=== PATIENT | female | born 1985 | race Caucasian/White ===

== ENCOUNTER 2017-03-02 14:02 | Emergency (ER) | payer MEDICAID ==
[~2017-03-02] VITALS: Ht 165.1 cm; Wt 104.3 kg
[2017-03-02 14:02] VITALS: BP_SYST 122
[2017-03-02 14:45] LABS: BASOPHILS # (AUTO) 0.1 K/uL (0.0-0.2); EOSINOPHILS # (AUTO) 0.2 K/uL (0.0-0.4); HEMATOCRIT 44.4 % (36-48); LYMPHOCYTES # (AUTO) 1.7 K/uL (1.0-5.5); MEAN CORPUSCULAR HEMOGLOBIN 31 pg (27-31); MEAN CORPUSCULAR HGB CONC 33 % (32-36); MEAN CORPUSCULAR VOLUME 93 fL (79.0-98.0)
[2017-03-02 14:49] LABS: EOSINOPHILS % (AUTO) 1.7 % (0.0-4.0); HEMOGLOBIN 14.7 g/dL (12.0-16.0); LYMPHOCYTES % (AUTO) 15.5 % (20.5-51.5); MONOCYTES # (AUTO) 0.5 K/uL (0.0-1.0); MONOCYTES % (AUTO) 4.7 % (1.7-9.3); NEUTROPHILS # (AUTO) 8.6 K/uL (1.8-7.7); NEUTROPHILS % (AUTO) 77.1 % (40.0-70.0); PLATELET COUNT (AUTO) 281 K/uL (130-430); RED BLOOD CELL COUNT(AUTO) 4.76 MIL/uL (4.2-6.2); RED CELL DISTRIBUTION WIDTH 11.4 % (9.0-15.0); WHITE BLOOD COUNT (AUTO) 11.1 K/uL (4.8-10.8)
[2017-03-02 14:51] LABS: BILIRUBIN,URINE NEGATIVE (NEGATIVE); CLARITY/URINE HAZY (CLEAR); COLOR,URINE YELLOW (YELLOW); GLUCOSE,URINE NEGATIVE (NEGATIVE); KETONES,URINE NEGATIVE (NEGATIVE); LEUKOCYTE ESTERASE ,URINE 1+ (NEGATIVE); NITRITE, URINE NEGATIVE (NEGATIVE); PH,URINE 5.5 (5.0-8.0); PROTEIN URINE TRACE (NEGATIVE); UROBILINOGEN,URINE 0.2 (0.2-1.0)
[2017-03-02 14:56] LABS: BLOOD, URINE TRACE (NEGATIVE)
[2017-03-02 14:56] LABS: CALCIUM 9.2 mg/dL (8.4-11.0); CREATININE 0.68 mg/dL (0.55-1.30); POTASSIUM 4.1 mmol/L (3.5-5.1)
[2017-03-02 14:59] LABS: BACTERIA,URINE FEW /HPF (None Seen)
[2017-03-02 15:04] LABS: ALBUMIN 4.1 g/dL (3.4-4.8); TOTAL BILIRUBIN 0.7 mg/dL (0.0-1.0); TOTAL PROTEIN, SERUM 7.8 g/dL (6.4-8.3)
[2017-03-02] MEDS ORDERED: MAG HYDROX/AL HYDROX/SIMETH 30 ML, LIDOCAINE VISCOUS 2% 15ML (PO) 10 ML, BELLADONNA ALK... PO ONE ×3 (16:00)
[2017-03-02 16:59] LABS: BILIRUBIN,URINE 1+ (NEGATIVE); CLARITY/URINE CLOUDY (CLEAR); COLOR,URINE YELLOW (YELLOW); GLUCOSE,URINE NEGATIVE (NEGATIVE); KETONES,URINE NEGATIVE (NEGATIVE); LEUKOCYTE ESTERASE ,URINE NEGATIVE (NEGATIVE); NITRITE, URINE NEGATIVE (NEGATIVE); PH,URINE 5.5 (5.0-8.0); PROTEIN URINE NEGATIVE (NEGATIVE); UROBILINOGEN,URINE 0.2 (0.2-1.0)
[2017-03-02 17:15] LABS: BLOOD, URINE TRACE (NEGATIVE)
[2017-03-02 17:23] LABS: BACTERIA,URINE MODERATE /HPF (None Seen); MUCUS,URINE 1+ /LPF (None Seen); RBC,URINE 0-3 /HPF (0-3)
[2017-03-02] MEDS ORDERED: cefTRIAXone 1 GM VIAL IM ONE (17:30)
[2017-03-02] MEDS ORDERED: LIDOCAINE 1% 10 MG/ML, 20 ML MDV INJ ONE (17:30)
[2017-03-02 22:58] VITALS: BP_SYST 143
== END 2017-03-02 18:00 | disposition home or self-care (01) ==
LOC: SED 14:02
DX: K81.0 Acute cholecystitis (principal); N39.0 Urinary tract infection, site not specified; Z88.2 Allergy status to sulfonamides
CPT/HCPCS: 36415; 76700; 80053; 81000; 83690; 85025; 87086; 96372; 99285; J0696; J2001 ×2

== ENCOUNTER 2017-03-02 22:06 | Inpatient (IN) | payer MEDICAID ==
[~2017-03-02] VITALS: Ht 165.1 cm; Wt 103.9 kg
[2017-03-02 22:17] VITALS: BP_SYST 135
[2017-03-02] MEDS ORDERED: MORPHINE 2 MG/ML INJ. SYRINGE IVP PRN (22:30)
[2017-03-02 22:55] VITALS: BP_SYST 143
[2017-03-02 23:15] VITALS: BP_SYST 143
[2017-03-02] MEDS: D5NS 1,000 ML IV SCH (23:39)
[2017-03-03] VITALS (7 sets, daily range): BP systolic 113–130
[2017-03-03] MEDS: PIPERACILLIN/TAZO 3.375 GM in NS 50 ML IV SCH ×4 (00:50→17:55)
[2017-03-03 07:46] LABS: BASOPHILS % (AUTO) 0.3 % (0.0-2.0); EOSINOPHILS # (AUTO) 0.1 K/uL (0.0-0.4); EOSINOPHILS % (AUTO) 1.1 % (0.0-4.0); HEMATOCRIT 38.1 % (36-48); HEMOGLOBIN 13.1 g/dL (12.0-16.0); LYMPHOCYTES # (AUTO) 2.1 K/uL (1.0-5.5); LYMPHOCYTES % (AUTO) 20.5 % (20.5-51.5); MEAN CORPUSCULAR HEMOGLOBIN 32 pg (27-31); MEAN CORPUSCULAR HGB CONC 34 % (32-36); MEAN CORPUSCULAR VOLUME 94 fL (79.0-98.0); MONOCYTES # (AUTO) 0.6 K/uL (0.0-1.0); MONOCYTES % (AUTO) 6.3 % (1.7-9.3); NEUTROPHILS # (AUTO) 7.3 K/uL (1.8-7.7); NEUTROPHILS % (AUTO) 71.8 % (40.0-70.0); PLATELET COUNT (AUTO) 223 K/uL (130-430); RED BLOOD CELL COUNT(AUTO) 4.07 MIL/uL (4.2-6.2); RED CELL DISTRIBUTION WIDTH 11.6 % (9.0-15.0); WHITE BLOOD COUNT (AUTO) 10.1 K/uL (4.8-10.8)
[2017-03-03 07:56] LABS: CALCIUM 8.3 mg/dL (8.4-11.0); CREATININE 0.75 mg/dL (0.55-1.30); POTASSIUM 3.5 mmol/L (3.5-5.1)
[2017-03-03 08:00] LABS: ALBUMIN 3.3 g/dL (3.4-4.8); TOTAL BILIRUBIN 0.6 mg/dL (0.0-1.0); TOTAL PROTEIN, SERUM 6.7 g/dL (6.4-8.3)
[2017-03-03] MEDS ORDERED: MORPHINE 2 MG/ML INJ. SYRINGE IVP PRN ×5 (08:45→17:15)
[2017-03-03] MEDS ORDERED: LORazepam 2 MG/ML VIAL IVP PRN (08:45)
[2017-03-03] MEDS ORDERED: ACETAMINOPHEN 325 MG TABLET PO PRN (08:45)
[2017-03-03] MEDS ORDERED: DOCUSATE SODIUM 100 MG CAPSULE PO PRN (08:45)
[2017-03-03] MEDS ORDERED: POTASSIUM CHLORIDE 10 MEQ TAB.PRT.SR PO PRN (08:45)
[2017-03-03] MEDS ORDERED: MAGNESIUM SULFATE 50 ML IV PRN (08:45)
[2017-03-03] MEDS ORDERED: ONDANSETRON HCL 4 MG/2 ML VIAL IVP PRN (08:45)
[2017-03-03] MEDS ORDERED: ZOLPIDEM TARTRATE 5 MG TABLET PO PRN (08:45)
[2017-03-03 10:02] LABS: BILIRUBIN,URINE NEGATIVE (NEGATIVE); CLARITY/URINE CLEAR (CLEAR); COLOR,URINE YELLOW (YELLOW); GLUCOSE,URINE NEGATIVE (NEGATIVE); KETONES,URINE NEGATIVE (NEGATIVE); LEUKOCYTE ESTERASE ,URINE TRACE (NEGATIVE); NITRITE, URINE NEGATIVE (NEGATIVE); PH,URINE 5.5 (5.0-8.0); PROTEIN URINE NEGATIVE (NEGATIVE); UROBILINOGEN,URINE 0.2 (0.2-1.0)
[2017-03-03 10:03] LABS: BLOOD, URINE TRACE (NEGATIVE)
[2017-03-03 10:23] LABS: BACTERIA,URINE FEW /HPF (None Seen); MUCUS,URINE 1+ /LPF (None Seen)
[2017-03-03] MEDS ORDERED: NS 1000 ML BAG IV ONE (10:25)
[2017-03-03] MEDS ORDERED: NS IRRIG SOLN 1000 ML IR ONE (10:25)
[2017-03-03] MEDS ORDERED: SEVOFLURANE 15 MIN GAS INH ONE (10:25)
[2017-03-03] MEDS ORDERED: GLYCOPYRROLATE 0.2 MG/ML VIAL IJ ONE (10:25)
[2017-03-03] MEDS ORDERED: ROCURONIUM BROMIDE 10 MG/ML (ZEMURON) IV ONE (10:25)
[2017-03-03] MEDS ORDERED: ONDANSETRON HCL 4 MG/2 ML VIAL IVP ONE (10:25)
[2017-03-03] MEDS ORDERED: MIDAZOLAM HCL 5 MG/5 ML VIAL IVP ONE (10:25)
[2017-03-03] MEDS ORDERED: LR 1,000 ML IV.SOLN IV ONE (10:25)
[2017-03-03] MEDS ORDERED: NEOSTIGMINE METHYLSULFATE 1 MG/ML, 10 ML VIAL IVP ONE (10:25)
[2017-03-03] MEDS ORDERED: PROPOFOL 200MG/ 20ML VIAL (DIPRIVAN) IV ONE (10:25)
[2017-03-03] MEDS ORDERED: fentaNYL CITRATE 250 MCG/5 ML AMP IV ONE (10:25)
[2017-03-03] MEDS ORDERED: BUPIVACAINE /EPINEPHRINE/PF 0.25% 30 ML VIAL INJ ONE (10:25)
[2017-03-03] MEDS ORDERED: CEFAZOLIN 2 GM IVPB PREMIX 50 ML IV ONE (10:25)
[2017-03-03] MEDS ORDERED: LR 1,000 ML IV SCH (11:07)
[2017-03-03] MEDS ORDERED: METOCLOPRAMIDE HCL 10 MG/2 ML VIAL IVP PRN (11:15)
[2017-03-03] MEDS ORDERED: MORPHINE 4 MG/ML INJ. SYRINGE ONE (12:11)
[2017-03-03] MEDS: D5NS 1,000 ML IV SCH ×2 (17:55→20:44)
[2017-03-04] MEDS: PIPERACILLIN/TAZO 3.375 GM in NS 50 ML IV SCH ×5 (00:07→23:57)
[2017-03-04 01:09] VITALS: BP_SYST 108
[2017-03-04 03:39] VITALS: BP_SYST 125
[2017-03-04] MEDS: D5NS 1,000 ML IV SCH ×2 (05:49→17:32)
[2017-03-04 06:29] LABS: BASOPHILS % (AUTO) 0.3 % (0.0-2.0); EOSINOPHILS % (AUTO) 0.3 % (0.0-4.0); HEMATOCRIT 36.7 % (36-48); HEMOGLOBIN 12.6 g/dL (12.0-16.0); LYMPHOCYTES # (AUTO) 1.1 K/uL (1.0-5.5); LYMPHOCYTES % (AUTO) 8.2 % (20.5-51.5); MEAN CORPUSCULAR HEMOGLOBIN 32 pg (27-31); MEAN CORPUSCULAR HGB CONC 34 % (32-36); MEAN CORPUSCULAR VOLUME 94 fL (79.0-98.0); MONOCYTES # (AUTO) 0.7 K/uL (0.0-1.0); MONOCYTES % (AUTO) 5.3 % (1.7-9.3); NEUTROPHILS # (AUTO) 11.9 K/uL (1.8-7.7); NEUTROPHILS % (AUTO) 85.9 % (40.0-70.0); PLATELET COUNT (AUTO) 216 K/uL (130-430); RED CELL DISTRIBUTION WIDTH 11.4 % (9.0-15.0); WHITE BLOOD COUNT (AUTO) 13.7 K/uL (4.8-10.8)
[2017-03-04 06:30] LABS: ALBUMIN 3.2 g/dL (3.4-4.8); CALCIUM 7.8 mg/dL (8.4-11.0); CREATININE 0.66 mg/dL (0.55-1.30); POTASSIUM 3.2 mmol/L (3.5-5.1); TOTAL BILIRUBIN 0.7 mg/dL (0.0-1.0); TOTAL PROTEIN, SERUM 6.6 g/dL (6.4-8.3)
[2017-03-04 07:55] VITALS: BP_SYST 106
[2017-03-04] MEDS ORDERED: HYDROcodone/ACETAMIN 10-325 MG TAB PO PRN (10:30)
[2017-03-04 18:28] VITALS: BP_SYST 115
[2017-03-04 19:40] VITALS: BP_SYST 118
[2017-03-05 00:18] VITALS: BP_SYST 131
[2017-03-05 04:17] VITALS: BP_SYST 120
[2017-03-05] MEDS: PIPERACILLIN/TAZO 3.375 GM in NS 50 ML IV SCH (05:40)
[2017-03-05 06:26] LABS: CALCIUM 7.7 mg/dL (8.4-11.0); CREATININE 0.54 mg/dL (0.55-1.30); POTASSIUM 3.3 mmol/L (3.5-5.1)
[2017-03-05 06:30] LABS: BASOPHILS % (AUTO) 0.3 % (0.0-2.0); EOSINOPHILS # (AUTO) 0.1 K/uL (0.0-0.4); HEMATOCRIT 34.2 % (36-48); HEMOGLOBIN 11.7 g/dL (12.0-16.0); LYMPHOCYTES # (AUTO) 2.4 K/uL (1.0-5.5); LYMPHOCYTES % (AUTO) 20.3 % (20.5-51.5); MEAN CORPUSCULAR HEMOGLOBIN 32 pg (27-31); MEAN CORPUSCULAR HGB CONC 34 % (32-36); MEAN CORPUSCULAR VOLUME 94 fL (79.0-98.0); MONOCYTES # (AUTO) 0.7 K/uL (0.0-1.0); MONOCYTES % (AUTO) 6.2 % (1.7-9.3); NEUTROPHILS # (AUTO) 8.6 K/uL (1.8-7.7); NEUTROPHILS % (AUTO) 72.2 % (40.0-70.0); PLATELET COUNT (AUTO) 191 K/uL (130-430); RED BLOOD CELL COUNT(AUTO) 3.66 MIL/uL (4.2-6.2); RED CELL DISTRIBUTION WIDTH 11.4 % (9.0-15.0); WHITE BLOOD COUNT (AUTO) 11.8 K/uL (4.8-10.8)
[2017-03-05 08:00] VITALS: BP_SYST 111
[2017-03-05 09:51] VITALS: BP_SYST 110
== END 2017-03-05 10:21 | disposition home or self-care (01) | DRG 710 ==
LOC: SED 22:06 → SMU 22:26
PROVIDERS: ADMIT General Practice; ATTEND General Practice
PROC: 0FT44ZZ Resection of Gallbladder, Percutaneous Endoscopic Approach (ICD-10-PCS; principal; 2017-03-03 10:45)
DX: A41.9 Sepsis, unspecified organism (principal); K80.00 Calculus of gallbladder with acute cholecystitis without obstruction; K21.9 Gastro-esophageal reflux disease without esophagitis; E66.01 Morbid (severe) obesity due to excess calories; N39.0 Urinary tract infection, site not specified; Z88.2 Allergy status to sulfonamides; Z68.38 Body mass index [BMI] 38.0-38.9, adult; E88.09 Other disorders of plasma-protein metabolism, not elsewhere classified
CPT/HCPCS: 36415; 80048; 80053; 81000-TC; 83735-TC; 84702-TC; 85025; 85610-TC; 85730-TC; 87081; 88304; 93005; 99285; C1727; J0690; J2250; J2270; J2405; J2543; J2704; J2710; J3010; J3490; J7030; J7042; J7120

== ENCOUNTER 2018-07-03 09:41 | Emergency (ER) | payer MEDICAID ==
[~2018-07-03] VITALS: Ht 165.1 cm; Wt 104.3 kg
[2018-07-03 09:52] VITALS: BP_SYST 147
[2018-07-03 11:21] VITALS: BP_SYST 130
== END 2018-07-03 11:21 | disposition home or self-care (01) ==
LOC: SED 09:41
DX: S93.602A Unspecified sprain of left foot, initial encounter (principal); Z88.2 Allergy status to sulfonamides; Z91.018 Allergy to other foods; X58.XXXA Exposure to other specified factors, initial encounter; Y93.89 Activity, other specified; Y92.89 Other specified places as the place of occurrence of the external cause; Y99.8 Other external cause status
CPT/HCPCS: 81025; 99284

== ENCOUNTER 2020-04-25 03:23 | Emergency (ER) | payer MEDICAID, SELFPAY ==
[~2020-04-25] VITALS: Ht 165.1 cm; Wt 122.5 kg
[2020-04-25 03:23] VITALS: BP_SYST 164
[2020-04-25] MEDS ORDERED: LORazepam 1 MG TABLET PO ONE (03:45)
[2020-04-25 03:57] LABS: BILIRUBIN,URINE NEGATIVE (NEGATIVE); BLOOD, URINE NEGATIVE (NEGATIVE); CLARITY/URINE CLEAR (CLEAR); COLOR,URINE YELLOW (YELLOW); GLUCOSE,URINE NEGATIVE (NEGATIVE); KETONES,URINE NEGATIVE (NEGATIVE); LEUKOCYTE ESTERASE ,URINE NEGATIVE (NEGATIVE); NITRITE, URINE NEGATIVE (NEGATIVE); PH,URINE 8.5 (5.0-8.0); PROTEIN URINE NEGATIVE (NEGATIVE); UROBILINOGEN,URINE 0.2 (0.2-1.0)
[2020-04-25] MEDS: ACETAMINOPHEN 500 MG TABLET PO ONE (04:08)
[2020-04-25] MEDS: NACL 0.9% 1,000 ML IV ONE ×2 (04:08→05:23)
[2020-04-25 04:32] LABS: ANION GAP 13 (5-15); CALCIUM 9.1 mg/dL (8.4-11.0); CHLORIDE 104 mmol/L (98-107); CREATININE 0.75 mg/dL (0.55-1.30); GLUCOSE 123 mg/dL (70-99); POTASSIUM 3.9 mmol/L (3.5-5.1); SODIUM SERUM 140 mmol/L (136-145); UREA NITROGEN, BLOOD 11 mg/dL (8-21)
[2020-04-25] MEDS: LORazepam 1 MG TABLET PO ONE (04:36)
[2020-04-25 04:51] LABS: ALANINE AMINOTRANSFERASE 43 U/L (12-78); ALBUMIN 3.5 g/dL (3.4-4.8); ASPARTATE AMINOTRANSFERASE 22 U/L (10-37); BILIRUBIN,DIRECT 0.1 mg/dL (0.0-0.3); FREE T4 (FREE THYROXINE) 1.3 ng/dl (0.8-1.5); LIPASE 53 U/L (73-393); THYROID STIMULATING HORMONE 3.04 uIu/mL (0.36-3.74); TOTAL BILIRUBIN 0.3 mg/dL (0.0-1.0)
[2020-04-25 04:52] LABS: GFR AFRICAN AMERICAN 114 mL/min (>90)
[2020-04-25 06:43] LABS: BASOPHILS % (AUTO) 0.2 % (0.0-2.0); EOSINOPHILS % (AUTO) 0.3 % (0.0-4.0); HEMOGLOBIN 14.5 g/dL (12.0-16.0); LYMPHOCYTES # (AUTO) 1.4 K/uL (1.0-5.5); LYMPHOCYTES % (AUTO) 11.7 % (20.5-51.5); MEAN CORPUSCULAR HEMOGLOBIN 31 pg (27-31); MEAN CORPUSCULAR HGB CONC 32 % (32-36); MEAN CORPUSCULAR VOLUME 96 fL (79.0-98.0); MONOCYTES # (AUTO) 0.5 K/uL (0.0-1.0); MONOCYTES % (AUTO) 4.2 % (1.7-9.3); NEUTROPHILS % (AUTO) 83.6 % (40.0-70.0); PLATELET COUNT (AUTO) 281 K/uL (130-430); RED BLOOD CELL COUNT(AUTO) 4.69 MIL/uL (4.2-6.2); RED CELL DISTRIBUTION WIDTH 12.8 % (9.0-15.0)
[2020-04-25] MEDS ORDERED: cefTRIAXone 1 GM in D5W 50 ML IV ONE (07:15)
[2020-04-25 08:12] VITALS: BP_SYST 126
== END 2020-04-25 07:40 | disposition home or self-care (01) ==
LOC: SED 03:23
DX: R07.89 Other chest pain (principal); R00.0 Tachycardia, unspecified; Z20.828 Contact with and (suspected) exposure to other viral communicable diseases; Z88.2 Allergy status to sulfonamides; Z91.018 Allergy to other foods
CPT/HCPCS: 36415; 71045; 80048; 80076; 81003; 81025; 83690; 84439; 84443; 84484; 85025; 85379; 93005; 96360; 96361; 99285; C9803; J7030; U0003

== ENCOUNTER 2020-05-01 18:27 | Emergency (ER) | payer MEDICAID, SELFPAY ==
[~2020-05-01] VITALS: Ht 165.1 cm; Wt 122.5 kg
[2020-05-01 18:47] VITALS: BP_SYST 137
[2020-05-01 19:20] LABS: BASOPHILS # (AUTO) 0.1 K/uL (0.0-0.2); BASOPHILS % (AUTO) 0.4 % (0.0-2.0); EOSINOPHILS % (AUTO) 0.2 % (0.0-4.0); HEMATOCRIT 42.6 % (36-48); HEMOGLOBIN 14.5 g/dL (12.0-16.0); LYMPHOCYTES # (AUTO) 1.6 K/uL (1.0-5.5); LYMPHOCYTES % (AUTO) 11.5 % (20.5-51.5); MEAN CORPUSCULAR HEMOGLOBIN 32 pg (27-31); MEAN CORPUSCULAR HGB CONC 34 % (32-36); MEAN CORPUSCULAR VOLUME 93 fL (79.0-98.0); MONOCYTES # (AUTO) 0.7 K/uL (0.0-1.0); MONOCYTES % (AUTO) 5.4 % (1.7-9.3); NEUTROPHILS # (AUTO) 11.4 K/uL (1.8-7.7); NEUTROPHILS % (AUTO) 82.5 % (40.0-70.0); PLATELET COUNT (AUTO) 269 K/uL (130-430); RED BLOOD CELL COUNT(AUTO) 4.58 MIL/uL (4.2-6.2); RED CELL DISTRIBUTION WIDTH 12.4 % (9.0-15.0); WHITE BLOOD COUNT (AUTO) 13.8 K/uL (4.8-10.8)
[2020-05-01 19:43] LABS: CREATININE 0.89 mg/dL (0.55-1.30); POTASSIUM 3.6 mmol/L (3.5-5.1)
[2020-05-01 19:54] LABS: ALBUMIN 3.8 g/dL (3.4-4.8); TOTAL BILIRUBIN 0.7 mg/dL (0.0-1.0)
[2020-05-01 21:40] VITALS: BP_SYST 137
== END 2020-05-01 21:40 | disposition home or self-care (01) ==
LOC: SED 18:27
DX: R09.1 Pleurisy (principal); Z88.2 Allergy status to sulfonamides; Z91.018 Allergy to other foods
CPT/HCPCS: 36415; 71045; 80053; 83880; 84484; 85025; 85379; 93005; 99285

== ENCOUNTER 2020-07-06 21:51 | Emergency (ER) | payer MEDICAID, SELFPAY ==
[~2020-07-06] VITALS: Ht 165.1 cm; Wt 99.8 kg
[2020-07-06 22:08] VITALS: BP_SYST 163
[2020-07-06] MEDS ORDERED: KETOROLAC TROMETHAMINE 30 MG VIAL IVP ONE (22:30)
[2020-07-06 22:44] LABS: BASOPHILS # (AUTO) 0.1 K/uL (0.0-0.2); MEAN CORPUSCULAR VOLUME 94 fL (79.0-98.0)
[2020-07-06 22:49] LABS: BASOPHILS % (AUTO) 0.5 % (0.0-2.0); EOSINOPHILS # (AUTO) 0.1 K/uL (0.0-0.4); EOSINOPHILS % (AUTO) 0.5 % (0.0-4.0); HEMATOCRIT 46.8 % (36-48); LYMPHOCYTES # (AUTO) 1.7 K/uL (1.0-5.5); LYMPHOCYTES % (AUTO) 13.4 % (20.5-51.5); MEAN CORPUSCULAR HEMOGLOBIN 32 pg (27-31); MEAN CORPUSCULAR HGB CONC 34 % (32-36); MONOCYTES # (AUTO) 0.7 K/uL (0.0-1.0); NEUTROPHILS # (AUTO) 10.5 K/uL (1.8-7.7); NEUTROPHILS % (AUTO) 80.6 % (40.0-70.0); PLATELET COUNT (AUTO) 258 K/uL (130-430); RED BLOOD CELL COUNT(AUTO) 4.99 MIL/uL (4.2-6.2); RED CELL DISTRIBUTION WIDTH 12.6 % (9.0-15.0)
[2020-07-06 22:53] LABS: ANION GAP 16 (5-15); CALCIUM 9.5 mg/dL (8.4-11.0); CHLORIDE 99 mmol/L (98-107); GLUCOSE 120 mg/dL (70-99); POTASSIUM 3.5 mmol/L (3.5-5.1); SODIUM SERUM 136 mmol/L (136-145); UREA NITROGEN, BLOOD 12 mg/dL (8-21)
[2020-07-06 23:05] LABS: ALANINE AMINOTRANSFERASE 57 U/L (12-78); ALBUMIN 4.6 g/dL (3.4-4.8); ASPARTATE AMINOTRANSFERASE 25 U/L (10-37); HCG,QUANTITATIVE 0 mIU/ML (0-6); TOTAL BILIRUBIN 0.6 mg/dL (0.0-1.0)
[2020-07-06 23:07] LABS: GFR AFRICAN AMERICAN 92 mL/min (>90)
[2020-07-06] MEDS ORDERED: IOHEXOL 350 mgI/mL, 150 ML INFUS..BTL IV ONE (23:09)
[2020-07-07 01:00] VITALS: BP_SYST 158
== END 2020-07-07 01:00 | disposition home or self-care (01) ==
LOC: SED 21:51
DX: R07.89 Other chest pain (principal); R03.0 Elevated blood-pressure reading, without diagnosis of hypertension; K29.60 Other gastritis without bleeding; Z88.2 Allergy status to sulfonamides; Z91.018 Allergy to other foods
CPT/HCPCS: 36415; 71275; 80053; 84484; 84702; 85025; 93005; 96374; 99285; J1885; Q9967

== ENCOUNTER 2021-03-23 01:38 | Emergency (ER) | payer MEDICAID ==
[~2021-03-23] VITALS: Ht 165.1 cm; Wt 104.3 kg
[2021-03-23 01:38] VITALS: BP_SYST 162
[2021-03-23] MEDS ORDERED: methylPREDNISolone SOD SUCC/PF 62.5 MG/ML VIAL IM ONE (04:00)
[2021-03-23] MEDS ORDERED: ZIT250 PO (04:47)
[2021-03-23 05:00] VITALS: BP_SYST 148
== END 2021-03-23 05:00 | disposition home or self-care (01) ==
LOC: SED 01:38
DX: T78.40XA Allergy, unspecified, initial encounter (principal); Z88.2 Allergy status to sulfonamides; Z91.018 Allergy to other foods; Z79.899 Other long term (current) drug therapy; X58.XXXA Exposure to other specified factors, initial encounter
CPT/HCPCS: 71045; 81025; 96372; 99283

== ENCOUNTER 2021-10-19 20:11 | Emergency (ER) | payer MEDICAID ==
[~2021-10-19] VITALS: Ht 165.1 cm; Wt 117.9 kg
[~2021-10-19 20:11] MED LIST: ZIT250 PO
--- NOTE | 2021-10-19 20:17 | NUR ---
Patient to ER bed 7 to gown for evaluation. Side rails up. Report given to JASON BARAHONA.
[2021-10-19 20:27] VITALS: BP_SYST 150
--- NOTE | 2021-10-19 20:40 | NUR ---
PT C/O DRAINAGE OF LT BIG TOE
--- NOTE | 2021-10-19 20:45 | NUR ---
SONYA John at bedside examining patient.
[2021-10-19] MEDS ORDERED: TERB250T90 PO (20:55)
[2021-10-19] MEDS ORDERED: TERB15CR TP (20:55)
--- NOTE | 2021-10-19 21:04 | NUR ---
Patient given written and verbal discharge instructions and verbalizes understanding. ER MD discussed with patient the results and treatment provided. Patient in stable condition. Rx of TERBINAFINE AND LAMISIL given. Opportunity for questions provided and answered.
== END 2021-10-19 21:05 | disposition home or self-care (01) ==
LOC: SED 20:11
DX: B35.1 Tinea unguium (principal); J45.909 Unspecified asthma, uncomplicated; Z88.2 Allergy status to sulfonamides; Z91.018 Allergy to other foods
CPT/HCPCS: 99283

== ENCOUNTER 2022-04-15 19:33 | Emergency (ER) | payer MEDICAID ==
[~2022-04-15] VITALS: Ht 165.1 cm; Wt 117.9 kg
[~2022-04-15 19:33] MED LIST changes: +TERB15CR TP; +TERB250T90 PO
[2022-04-15 19:52] VITALS: BP_SYST 143
--- NOTE | 2022-04-15 23:31 | NUR ---
AZEEM Mix RN PT HCG TEST IS NEGATIVE, PT COMES IN WITH CC OF LEFT SIDED FACIAL NUMBNESS AND TINGLING SINCE YESTERDAY, NO FACIAL DROOP OR WEAKNESS. A&OX4, VSS, NAD. WILL CONTINUE TO MONITOR.
[2022-04-16 02:05] VITALS: BP_SYST 132
== END 2022-04-16 02:05 | disposition home or self-care (01) ==
LOC: SED 19:33
DX: S54 Injury of nerves at forearm level (principal); R20.2 Paresthesia of skin; J45.909 Unspecified asthma, uncomplicated; Z88.2 Allergy status to sulfonamides; Z91.018 Allergy to other foods; Z79.899 Other long term (current) drug therapy; X58.XXXA Exposure to other specified factors, initial encounter; Y93.89 Activity, other specified; Y92.89 Other specified places as the place of occurrence of the external cause; Y99.8 Other external cause status
CPT/HCPCS: 70450-TC; 70486-TC; 76376; 81025; 99284

== ENCOUNTER 2023-02-27 09:57 | Emergency (ER) | payer MEDICAID ==
[~2023-02-27] VITALS: Ht 165.1 cm; Wt 122.5 kg
[2023-02-27 10:01] VITALS: BP_SYST 126
[2023-02-27 10:32] LABS: BASOPHILS % (AUTO) 0.4 % (0.0-2.0); EOSINOPHILS # (AUTO) 0.1 K/uL (0.0-0.4); EOSINOPHILS % (AUTO) 0.6 % (0.0-4.0); HEMATOCRIT 42.8 % (36-48); HEMOGLOBIN 14.4 g/dL (12.0-16.0); LYMPHOCYTES # (AUTO) 2.6 K/uL (1.0-5.5); LYMPHOCYTES % (AUTO) 20.1 % (20.5-51.5); MEAN CORPUSCULAR HEMOGLOBIN 32 pg (27-31); MEAN CORPUSCULAR HGB CONC 34 % (32-36); MEAN CORPUSCULAR VOLUME 94 fL (79.0-98.0); MONOCYTES # (AUTO) 0.8 K/uL (0.0-1.0); MONOCYTES % (AUTO) 6.6 % (1.7-9.3); NEUTROPHILS # (AUTO) 9.3 K/uL (1.8-7.7); NEUTROPHILS % (AUTO) 72.3 % (40.0-70.0); PLATELET COUNT (AUTO) 256 K/uL (130-430); RED BLOOD CELL COUNT(AUTO) 4.56 MIL/uL (4.2-6.2); RED CELL DISTRIBUTION WIDTH 12.8 % (9.0-15.0); WHITE BLOOD COUNT (AUTO) 12.8 K/uL (4.8-10.8)
[2023-02-27 10:43] LABS: ALANINE AMINOTRANSFERASE 37 U/L (12-78); ALBUMIN 3.8 g/dL (3.4-4.8); ANION GAP 12 (5-15); ASPARTATE AMINOTRANSFERASE 20 U/L (10-37); CALCIUM 8.7 mg/dL (8.4-11.0); CHLORIDE 100 mmol/L (98-107); CREATININE 0.73 mg/dL (0.55-1.30); GFR AFRICAN AMERICAN 115 mL/min (>90); GLUCOSE 119 mg/dL (70-99); TOTAL BILIRUBIN 0.8 mg/dL (0.0-1.0); UREA NITROGEN, BLOOD 9 mg/dL (8-21)
[2023-02-27] MEDS ORDERED: iohexoL 350 mgI/mL, 100 ML INFUS..BTL IV ONE (11:43)
[2023-02-27] MEDS ORDERED: ONDANSETRON HCL 4 MG/2 ML VIAL ONE (12:06)
[2023-02-27] MEDS ORDERED: DIPHENHYDRAMINE INJ 50 MG/ML VIAL IVP ONE (12:15)
[2023-02-27] MEDS ORDERED: ONDANSETRON HCL 4 MG/2 ML VIAL IVP ONE (12:15)
[2023-02-27 14:10] VITALS: BP_SYST 144
== END 2023-02-27 13:25 | disposition home or self-care (01) ==
LOC: SED 09:57
DX: R07.9 Chest pain, unspecified (principal); M25.512 Pain in left shoulder; R06.02 Shortness of breath; J45.909 Unspecified asthma, uncomplicated; Z88.2 Allergy status to sulfonamides; Z91.018 Allergy to other foods; Z79.899 Other long term (current) drug therapy
CPT/HCPCS: 99285; 96374; 71275; 71045; 96375; 80053; 84703; 85025; 85379; 84484; 36415; 93005; 76376; Q9967; J1200; J2405